=== PATIENT | male | born 1970 | race Caucasian/White ===

== ENCOUNTER 2016-11-10 19:37 | Emergency (ER) | payer BC, OTHER ==
[~2016-11-10] VITALS: Ht 175.3 cm; Wt 121.0 kg
[2016-11-10 19:42] VITALS: TEMP 36.7; Ht 175.3 cm; Wt 121.0 kg
[2016-11-10] MEDS ORDERED: ACET-1256 PO (20:06)
[2016-11-10] MEDS ORDERED: IBUP-1050 PO (20:06)
--- NOTE | 2016-11-10 20:57 | DIAGNOSTIC IMAGING REPORT ---
LEFT TIBIA/FIBULA 2 VIEWS ROUTINE CLINICAL HISTORY: Left lower leg contusion. COMPARISON: Left tibia and fibula radiographs September 01, 2009. FINDINGS: Postoperative findings within the left tibia with placement of intramedullary maryse and distal screws is unchanged since exam of September 01, 2009. There are healed distal left tibial and fibular fractures with bony fusion across the syndesmosis. This is unchanged. There is no acute fracture of the left tibia or fibula. There are soft tissue swelling of the left lower leg. IMPRESSION: 1. No acute fracture of the left tibia or fibula. 2. Stable postoperative findings consistent with left tibial internal fixation since exam of September 01, 2009. 3. Left lower leg soft tissue swelling. Electronically signed by: Dex Jane M.D. 11/10/2016 8:56 PM Dictated Date/Time: 11/10/2016 8:53 PM
--- NOTE | 2016-11-10 21:38 | DIAGNOSTIC IMAGING REPORT ---
LEFT LOWER EXTREMITY VENOUS DOPPLER CLINICAL HISTORY: Swelling/bruising to left lower leg COMPARISON STUDY: Left lower extremity venous Doppler lower August 22, 2009. TECHNIQUE: Sonography of the deep venous system of the left lower extremity was performed. Compression and augmentation were evaluated. FINDINGS: The left common femoral, superficial femoral and popliteal veins were compressible. Augmentation was normal. Flow was shown within the deep calf vessels. There is a 5.9 x 5.1 x 1.7 cm hypoechoic fluid collection anterior to the mid aspect of the left tibia. This contains no color flow. IMPRESSION: 1. No evidence of deep venous thrombus within the left lower extremity. 2. 5.9 x 5.1 x 1.7 cm anterior left lower leg fluid collection which favors a hematoma. Follow-up to ensure resolution is recommended. Electronically signed by: Dex Jane M.D. 11/10/2016 9:37 PM Dictated Date/Time: 11/10/2016 9:36 PM
[2016-11-10 22:30] VITALS: BP 135/81; PULSE 78; O2SAT 98
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
== END 2016-11-10 22:30 | disposition home or self-care (01) ==
LOC: C.EDB 19:38 → C.EDD 22:30
DX: S89.92XA Unspecified injury of left lower leg, initial encounter (principal); S80.12XA Contusion of left lower leg, initial encounter; W22.8XXA Striking against or struck by other objects, initial encounter

== ENCOUNTER → 2017-06-06 | Outpatient (CLI) | payer BC ==
[~2017-06-06] MED LIST: ACET-1256 PO; IBUP-1050 PO
--- NOTE | 2017-06-06 09:19 | DIAGNOSTIC IMAGING REPORT ---
L-SPINE MIN 4 VIEWS ROUTINE HISTORY: Trauma. Pain. HX OF FALL COMPARISON: None. FINDINGS: There is no fracture. No subluxation. Moderate degenerative disc change primarily from L4 through S1 IMPRESSION: Moderate degenerative disc change primarily from L4 through S1. Otherwise negative study. The above report was generated using voice recognition software. It may contain grammatical, syntax or spelling errors. Electronically signed by: Sheldon Soni M.D. 06/06/2017 9:18 AM Dictated Date/Time: 06/06/2017 9:15 AM
[2017-06-06 13:23] LABS: BLOOD UREA NITROGEN 18 mg/dl (7-18); CALCIUM 8.8 mg/dl (8.5-10.1); CARBON DIOXIDE 24 mmol/L (21-32); CREATININE 1.16 mg/dl (0.60-1.40); GLUCOSE 96 mg/dl (70-99); SODIUM 137 mmol/L (136-145)
[2017-06-06 13:34] LABS: CHOLESTEROL 162 mg/dl (0-200); LDL CHOLESTEROL CALCULATED 97 mg/dl
== END | disposition home or self-care (01) ==
LOC: C.LABPVFM 08:34
PROVIDERS: ATTEND Nurse Practitioner Family
DX: M79.1 Myalgia (principal); Z13.220 Encounter for screening for lipoid disorders; Z13.1 Encounter for screening for diabetes mellitus; E66.9 Obesity, unspecified; Z91.81 History of falling; M47.817 Spondylosis without myelopathy or radiculopathy, lumbosacral region